=== PATIENT | male | born 1985 | race Caucasian/White ===

== ENCOUNTER 2020-10-08 10:15 | Day surgery (SDC) | payer OTHER ==
[2020-10-03 16:00] VITALS: BMI 30.7
[2020-10-08] MEDS ORDERED: LIDOCAINE HCL/PF 2% SDV 5ML VIAL ONE (10:21)
[2020-10-08] MEDS ORDERED: PROPOFOL 20 ML ONE ×2 (10:21)
[2020-10-08 10:26] VITALS: TEMP 98.2
[2020-10-08 12:10] VITALS: BP 116/54; PULSE 74
== END 2020-10-08 12:30 | disposition home or self-care (01) ==
LOC: FASU-ENDO 10:15
PROVIDERS: ATTEND Internal Medicine Gastroenterology
PROC: 0DJD8ZZ Inspection of Lower Intestinal Tract, Via Natural or Artificial Opening Endoscopic (ICD-10-PCS; principal; 2020-10-08 11:22)
DX: K92.1 Melena (principal); K64.0 First degree hemorrhoids